=== PATIENT | female | born 1945 | race Caucasian/White ===

== ENCOUNTER → 2017-04-28 | Day surgery (SDC) | payer OTHER, MEDICAID ==
[~2017-04-28] VITALS: Ht 160 cm; Wt 64.4 kg
[~2017-04-28] MED LIST: ALLO100T PO; AMLO5TAB2 PO; ANGIOMAX 250 MG VIAL IV ONE; EPTIFIBATIDE INJ (2MG/ML) 10ML VIAL IV ONE; HEPARIN 1,000 UNITS/ml 1ML VIAL ONE; HYDR12.56 PO; IODIXANOL 320MG/ML 100ML BTL IV ONE; LIDOCAINE 2%HCL (LOCAL ANESTH.) INJ 20ML MDV ONE; LOSA100T27 PO; METO-158 PO; MIDAZOLAM HCL 1MG/1ML-2 ML VIAL ONE; POTA10TA34 PO; PRAV20TA3 PO; SODIUM CHL 0.9% 0 ML ONE; VERAPAMIL 2.5MG/ML INJ 2ML VIAL IV ONE; fentaNYL CITRATE 100 MCG/2 ML VL ONE
== END | disposition home or self-care (01) ==
LOC: CATH 08:01
PROVIDERS: ATTEND Internal Medicine
DX: I35.0 Nonrheumatic aortic (valve) stenosis (principal); Z90.710 Acquired absence of both cervix and uterus
CPT/HCPCS: 93458; C1769; C1887; C1894; J1644; J2250; J3010; J7030; Q9967; 99152; 99153

== ENCOUNTER 2017-04-29 22:12 | Emergency (ER) | payer OTHER, MEDICAID ==
[~2017-04-29] VITALS: Ht 160 cm; Wt 64.4 kg
[~2017-04-29 22:12] MED LIST changes: -ANGIOMAX 250 MG VIAL IV ONE; -EPTIFIBATIDE INJ (2MG/ML) 10ML VIAL IV ONE; -HEPARIN 1,000 UNITS/ml 1ML VIAL ONE; -IODIXANOL 320MG/ML 100ML BTL IV ONE; -LIDOCAINE 2%HCL (LOCAL ANESTH.) INJ 20ML MDV ONE; -MIDAZOLAM HCL 1MG/1ML-2 ML VIAL ONE; -SODIUM CHL 0.9% 0 ML ONE; -VERAPAMIL 2.5MG/ML INJ 2ML VIAL IV ONE; -fentaNYL CITRATE 100 MCG/2 ML VL ONE
[2017-04-29 22:59] VITALS: BP 158/67
== END 2017-04-30 01:28 | disposition home or self-care (01) ==
LOC: ER 22:20
DX: M25.431 Effusion, right wrist (principal); E78.5 Hyperlipidemia, unspecified; I10 Essential (primary) hypertension; M10.9 Gout, unspecified; Z79.899 Other long term (current) drug therapy
CPT/HCPCS: 93005